=== PATIENT | female | born 1960 | race Caucasian/White ===

== ENCOUNTER 2017-09-10 18:36 | Observation (INO) | payer MEDICARE, MEDICAID ==
[~2017-09-10] VITALS: Ht 157.5 cm; Wt 54.0 kg
[~2017-09-10 18:36] MED LIST: ADULT LOW DOSE81 MG PO; ADVAIRDISKUS IH; AMBIEN 10 MG TA10 MG PO; ASPIRIN OR; CEPHALEXIN 500500 M3 PO; CIPRO500 MG PO; CIPROFLOXACIN500 M3 OR; CLEOCIN HCL300 MG PO; DARVOCET-N 1001 EAC1 OR; DETROL PO; DILANTIN100 MG PO; FLAGYL500 MG OR; GABAPENTIN PO; KEPPRA 500 MG500 M1 PO; LIDOCAINE VISC100 M1 SWISH&SPIT; LISINOPRIL5 MG; MAG-OX 400 TAB400 M1 OR; MEGESTROL40 MG/1 M1 PO; METHADONE HCL5 MG PO; NEBULIZER; NEURONTIN 300300 M1 PO; NORCO 5-325 TA1 EACH PO; NORVASC5 MG PO; POTASSIUM20 PO; PROAIR HFA8.5 GM INH; REMERON30 MG PO; SEROQUEL200 MG PO; SIMCOR 1,000-21 EACH PO; SPIRIVA PO; SYNTHROID25 MCG; XANAX 0.5 MG0.5 M1 PO; XANAX 0.5 MG0.5 MG PO; XANAX XR1 MG; ZANAFLEX4 MG PO
[2017-09-10 19:08] VITALS: BP 140/94
[2017-09-10] MEDS ORDERED: CLONAZEPAM 0.50.5 M1 PO (19:12)
[2017-09-10 20:05] LABS: ABSOLUTE BASOPHILS 0.1 thou/uL (0.0-0.2); ABSOLUTE EOSINOPHILS 0.1 thou/uL (0.0-0.7); ABSOLUTE LYMPHOCYTES 1.8 thou/uL (0.8-5.3); ABSOLUTE MONOCYTES 0.5 thou/uL (0.0-1.2); ABSOLUTE NEUTROPHILS 6.8 thou/uL (1.6-8.1); BASOPHILS 1.2 %; EOSINOPHILS 0.7 %; HEMATOCRIT 37.1 % (37.0-47.0); HEMOGLOBIN 12.3 gm/dL (12.0-15.0); LYMPHOCYTES 19.3 %; MCH 32.5 pg (26.0-34.0); MCHC 33.3 g/dL (28.0-37.0); MCV 97.7 fL (80.0-100.0); MONOCYTES 5.2 %; MPV 7.2 fl. (7.2-11.1); NUCLEATED RBCS 0 /100WBC; PLATELET COUNT* 174 thou/uL (150-400); POLYS 73.6 %; RDW-CV 13.7 % (10.5-14.5); WBC 9.2 thou/uL (4.0-11.0)
[2017-09-10 20:13] LABS: CALCIUM 8.3 mg/dL (8.5-10.1); CREATININE 0.7 mg/dL (0.6-1.3); POTASSIUM 4.4 mmol/L (3.5-5.1)
[2017-09-10 20:17] LABS: ALBUMIN 2.8 g/dL (3.4-5.0); TOTAL BILIRUBIN 0.2 mg/dL (<0.1-1.0); TOTAL PROTEIN 6.2 g/dL (6.4-8.2)
[2017-09-10 22:11] LABS: URINE BILIRUBIN NEGATIVE (Negative); URINE BLOOD TRACE (Negative); URINE CLARITY CLEAR; URINE COLOR YELLOW; URINE GLUCOSE-RANDOM NEGATIVE (Negative); URINE KETONES NEGATIVE (Negative); URINE LEUKOCYTES-REFLEX NEGATIVE (Negative); URINE NITRITE-REFLEX NEGATIVE (Negative); URINE PROTEIN NEGATIVE (Negative); URINE SPECIFIC GRAVITY 1.025 (1.005-1.030); URINE UROBILINOGEN 0.2 E.U./dl (0.2-1.0)
[2017-09-10 22:19] LABS: AMP/METHAMP Negative (Negative); BARBITURATES Negative (Negative); BENZODIAZEPINES POSITIVE (Negative); COCAINE Negative (Negative); METHADONE Negative (Negative); OPIATES POSITIVE (Negative); PCP Negative (Negative); THC POSITIVE (Negative)
[2017-09-10 23:55] VITALS: BP 141/102
[2017-09-11 00:05] VITALS: BP 141/84
[2017-09-11 08:00] VITALS: BP 102/66
[2017-09-11 11:30] VITALS: BP 109/71
[2017-09-11 16:00] VITALS: BP 149/96
[2017-09-11 20:00] VITALS: BP 151/110
[2017-09-12] VITALS: BP 122/75
[2017-09-12 04:00] VITALS: BP 125/77
[2017-09-12 08:12] VITALS: BP 148/97
[2017-09-12 10:15] VITALS: BP 148/97
== END 2017-09-12 11:19 | disposition home or self-care (01) ==
LOC: M.ERS 18:36 → M.2W 23:15 → M.TBA-ER 23:15 → M.2W 09-11 00:04
PROVIDERS: Personal Emergency Response Attendant; ADMIT Internal Medicine
DX: S41.112A Laceration without foreign body of left upper arm, initial encounter (principal); R27.0 Ataxia, unspecified; F31.9 Bipolar disorder, unspecified; T50.905A Adverse effect of unspecified drugs, medicaments and biological substances, initial encounter; F12.10 Cannabis abuse, uncomplicated; F10.10 Alcohol abuse, uncomplicated; G92 Toxic encephalopathy; G40.909 Epilepsy, unspecified, not intractable, without status epilepticus; E44.0 Moderate protein-calorie malnutrition; I47.1 Supraventricular tachycardia; I10 Essential (primary) hypertension; F17.210 Nicotine dependence, cigarettes, uncomplicated; J44.9 Chronic obstructive pulmonary disease, unspecified; W22.03XA Walked into furniture, initial encounter; Y92.89 Other specified places as the place of occurrence of the external cause; Y93.89 Activity, other specified; Y99.8 Other external cause status; Z86.73 Personal history of transient ischemic attack (TIA), and cerebral infarction without residual deficits; Z85.828 Personal history of other malignant neoplasm of skin; Z85.41 Personal history of malignant neoplasm of cervix uteri; Z72.89 Other problems related to lifestyle

== ENCOUNTER 2018-04-04 02:10 | Emergency (ER) | payer MEDICARE, OTHER, MEDICAID ==
[~2018-04-04] VITALS: Ht 157.5 cm; Wt 51.3 kg
[~2018-04-04 02:10] MED LIST changes: +CLONAZEPAM 0.50.5 M1 PO
[2018-04-04 02:39] LABS: BE -2.2 mmol/L (-2 to +3); PCO2 40.8 mmHg (35.0-45.0); pH 7.368 (7.340-7.450)
[2018-04-04 02:42] LABS: PO2 308.3 mmHg (75.0-100.0)
[2018-04-04 03:18] LABS: ABSOLUTE BASOPHILS 0.1 thou/uL (0.0-0.2); ABSOLUTE LYMPHOCYTES 1.7 thou/uL (0.8-5.3); ABSOLUTE MONOCYTES 0.5 thou/uL (0.0-1.2); BASOPHILS 0.7 %; EOSINOPHILS 0.3 %; HEMATOCRIT 44.4 % (37.0-47.0); HEMOGLOBIN 15.1 gm/dL (12.0-15.0); LYMPHOCYTES 12.5 %; MCH 32.8 pg (26.0-34.0); MCHC 33.9 g/dL (28.0-37.0); MCV 96.7 fL (80.0-100.0); MONOCYTES 4.1 %; MPV 6.8 fl. (7.2-11.1); NUCLEATED RBCS 0 /100WBC; PLATELET COUNT* 197 thou/uL (150-400); POLYS 82.4 %; RDW-CV 13.2 % (10.5-14.5); WBC 13.4 thou/uL (4.0-11.0)
[2018-04-04 03:22] LABS: ANION GAP 9 mmol/L (7-16); BUN 11 mg/dL (7-18); CALCIUM 8.6 mg/dL (8.5-10.1); CHLORIDE 106 mmol/L (98-107); CO2 28 mmol/L (21-32); CREATININE 0.8 mg/dL (0.6-1.3); GLUCOSE 109 mg/dL (70-99); POTASSIUM 3.5 mmol/L (3.5-5.1); SODIUM 143 mmol/L (136-145)
[2018-04-04 03:23] LABS: PROTIME 10.6 Seconds (9.20-11.50)
[2018-04-04 03:29] LABS: ALBUMIN 3.2 g/dL (3.4-5.0); ALKALINE PHOSPHATASE 110 U/L (46-116); SGOT 15 U/L (15-37); SGPT 18 U/L (30-65); TOTAL BILIRUBIN 0.2 mg/dL (<0.1-1.0); TOTAL PROTEIN 6.9 g/dL (6.4-8.2); TROPONIN-I LEVEL <0.06 ng/mL (<0.06)
[2018-04-04 04:20] VITALS: BP 105/63
--- NOTE | 2018-04-04 13:50 | EKG ---
[place] [address] ELECTROCARDIOGRAM REPORT Name: RAIZA PRESTON Room: [facility]#: [id number] Admission: 04/04/18 Attend Phys: Discharge: 04/04/18 Date of : 60 Report #: [id number] THIS REPORT FOR: //name// [facility] ED Test Date: 2018-04-04 Test Time: 02:25:30 Pat Name: RAIZA PRESTON Department: Room: Gender: F Serger: Osvaldo MIRELES : 1960 Requested By: Maribel Santos Order Number: [id number] MD: Shahid Rockwell Measurements Intervals [place] Rate: 160 P: VT: QRS: 65 QRSD: 146 T: 50 QT: 374 QTc: 611 Interpretive Statements artifact, NSR Right bundle branch block Probable left ventricular hypertrophy Borderline prolonged QT interval Artifact in lead(s) aVF,V1,V2,V3,V4,V5,V6 Compared to ECG 03/25/2015 17:21:09 Right bundle-branch block now present Sinus rhythm no longer present Right-axis deviation no longer present Electronically Signed On 04-04-2018 13:50:07 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
== END 2018-04-04 04:20 | disposition short-term general hospital (02) ==
LOC: M.ERS 02:10
PROVIDERS: Emergency Medicine
DX: T58.91XA Toxic effect of carbon monoxide from unspecified source, accidental (unintentional), initial encounter (principal); R41.0 Disorientation, unspecified; R51 Headache; R11.0 Nausea; J44.9 Chronic obstructive pulmonary disease, unspecified; F32.9 Major depressive disorder, single episode, unspecified; I10 Essential (primary) hypertension; Z85.828 Personal history of other malignant neoplasm of skin; Z90.49 Acquired absence of other specified parts of digestive tract; Z98.890 Other specified postprocedural states; Z86.73 Personal history of transient ischemic attack (TIA), and cerebral infarction without residual deficits; Z88.0 Allergy status to penicillin; Z88.5 Allergy status to narcotic agent; Z91.013 Allergy to seafood; Z88.8 Allergy status to other drugs, medicaments and biological substances

== ENCOUNTER 2020-03-25 11:54 | Emergency (ER) | payer MEDICARE, MEDICAID ==
[~2020-03-25] VITALS: Ht 154.9 cm; Wt 48.5 kg
[2020-03-25 14:26] VITALS: BP 122/68
== END 2020-03-25 14:27 | disposition home or self-care (01) ==
LOC: M.ERS 11:54
DX: S82.844A Nondisplaced bimalleolar fracture of right lower leg, initial encounter for closed fracture (principal); J44.9 Chronic obstructive pulmonary disease, unspecified; I10 Essential (primary) hypertension; F17.210 Nicotine dependence, cigarettes, uncomplicated; Z86.73 Personal history of transient ischemic attack (TIA), and cerebral infarction without residual deficits; Z98.890 Other specified postprocedural states; Z85.41 Personal history of malignant neoplasm of cervix uteri; Z85.828 Personal history of other malignant neoplasm of skin; Z86.14 Personal history of Methicillin resistant Staphylococcus aureus infection; Z91.041 Radiographic dye allergy status; Z88.0 Allergy status to penicillin; Z88.8 Allergy status to other drugs, medicaments and biological substances; Z91.013 Allergy to seafood; X50.1XXA Overexertion from prolonged static or awkward postures, initial encounter; Y93.89 Activity, other specified; Y92.89 Other specified places as the place of occurrence of the external cause; Y99.8 Other external cause status

== ENCOUNTER → 2020-04-13 | Day surgery (SDC) | payer MEDICARE, MEDICAID ==
[~2020-04-13] MED LIST changes: +ADVAIR 250-501 EACH INH; +ALBUTEROL2.5 MG/31 INH; +ASPIRIN325 PO; +HYDROCODON-ACE1 EAC7 PO; +TRAZODONE HCL50 MG PO
--- NOTE | ~2020-04-13 | OP ---
[facility] [place] [address] [place] [address] OPERATIVE REPORT Name: RAIZA PRESTON Room: [facility].#: [id number] Admission: 04/13/20 Attend Phys: Nicolette Chatman DO Discharge: Date of : 60 Report #: [id number] THIS REPORT FOR: cc: Richard Soni Ahmad W. DO ~ Nicolette Chatman DO DATE OF SERVICE: 04/13/2020 PREOPERATIVE DIAGNOSIS: Right bimalleolar ankle fracture with syndesmosis widening. POSTOPERATIVE DIAGNOSIS: Right bimalleolar ankle fracture with syndesmosis widening. PROCEDURE: 1. Open reduction and internal fixation, right lateral malleolus. 2. ORIF, right ankle syndesmosis. 3. Intraoperative physician-guided fluoroscopy less than 1 hour. SURGEON: Nicolette Chatman DO GRAIN BUYER: Dr. Jaiden Rodgers ANESTHESIA: General and nerve block by Anesthesia. ESTIMATED BLOOD LOSS: 10 mL. SPECIMENS: None. DRAINS: None. COMPLICATIONS: None. CONDITION: Stable. DISPOSITION: PACU to home. ANTIBIOTICS: 600 mg of clindamycin IV preoperatively. TOURNIQUET: Approximately 45 minutes at 250 mmHg. IMPLANTS: Arthrex fibular nail and syndesmosis TightRope. INDICATIONS FOR PROCEDURE: The patient is a 59-year-old female who sustained a bimalleolar ankle fracture approximately 3 weeks ago, she walked around on it [address] [address] OPERATIVE REPORT Name: RAIZA PRESTON Room: [facility] M..#: [id number] Admission: 04/13/20 Attend Phys: Nicolette Chatman DO Discharge: Date of : 60 Report #: [id number] for approximately 2 weeks prior to presenting to her primary care's office. X-rays at the primary care physician's office showed a displaced bimalleolar ankle fracture with syndesmosis widening. She was subsequently referred to our office. She unfortunately did not abide by her nonweightbearing restrictions and was not in a splint or any sort of assistive device. By the time she saw me in clinic her swelling was noted to be amenable to surgical fixation given the widening of her syndesmosis as well as the general displacement of the ankle fracture. I did recommend open reduction and internal fixation. The patient is a smoker and uses tobacco on a daily basis. She was counseled on the risks of using tobacco in regards to her both wound healing status as well as her wound healing and fracture healing statuses, but I did recommend surgical stabilization of the ankle with open reduction and internal fixation. The benefits, risks, complications, and alternatives of this procedure were discussed with the patient in detail. These include but are not limited to bleeding, surgical site infection, neurovascular compromise, wound healing complications, malunion, nonunion, hardware failure, continued pain, need for further surgery, DVT, PE as well as the inherent risks of anesthesia. The patient understands these risks and is agreeable to proceed. Consent was signed in the preoperative holding area and on the chart at time of surgery, operative site was marked. DESCRIPTION OF PROCEDURE: The patient was brought to the operating room and placed supine on the operating table. She was administered general anesthetic. A well-padded tourniquet was placed on the proximal portion of the right thigh. Right lower extremity was then sterilely prepped with ChloraPrep and allowed to dry for 3 minutes. She was then draped in usual fashion. A timeout was performed confirming correct patient, site and procedure. Surgical site markings were identified, and all in the room were in agreement. Procedure began with exsanguination of right lower extremity with an Esmarch and inflation of tourniquet to 250 mmHg. Next, a standard lateral incision was used starting at the fracture line and extending distally to the level of the peroneal tendons. This was carried through skin and subcutaneous tissues. Subperiosteal dissection was carried out. The fracture was identified. Fracture hematoma was cleared. The fracture was then reduced with manual reduction technique and held in place with a bone clamp. Next, the K wire from the fibular nail system was used, starting point was identified on C-arm fluoroscopy. The K-wire was then passed and the length of the fibula. An opening reamer was then used to the appropriate depth followed by the 3.5 mm proximal reamer. The nail was then inserted into the fibula. The nail was held into place with 2 K-wires. We then deployed the talons proximally, the lateral to medial screws were then drilled with the appropriate drill bit, measured and a 2.7 mm nonlocking screw was placed distally. We then stressed the ankle with an external rotation stress view. There was noted to be continued widening of the syndesmosis. Therefore, a decision was made to place a TightRope. This was drilled with a K-wire through the insertion guide. The insertion jig was then removed. This was then [address] [address] OPERATIVE REPORT Name: RAIZA PRESTON Room: [facility]#: [id number] Admission: 04/13/20 Attend Phys: Nicolette Chatman DO Discharge: Date of : 60 Report #: [id number] overdrilled with a cannulated drill bit and syndesmosis TightRope was placed across all 4 cortices according to the technique guide, tightened down appropriately. Excess sutures were removed. The medial malleolus was noted to be anatomically reduced at this point, given her bone quality, the decision was made to not fixate this with a concern for a destabilizing her medial malleolar fracture. At this point, final x-rays were taken, which confirmed appropriate fracture reduction, hardware placement and islam of a congruent ankle mortise. The wound was then irrigated with normal saline. Subcutaneous tissue closed with 2-0 Vicryl suture. Skin reapproximated with 3-0 nylon. The wound was then dressed with Xeroform, 4 x 4s, ABD, soft roll, well-padded posterior plaster splint was applied. Tourniquet was let down at approximately 45 minutes. The patient tolerated the procedure well without complications, transferred to PACU in stable condition. All needle and sponge counts were correct x 2 and I was present throughout all pertinent decision making aspects of the case. By: [id number] [id number] Chatman DO /nt
== END | disposition home or self-care (01) ==
LOC: M.SUR 08:33
PROVIDERS: ATTEND Orthopaedic Surgery
DX: S82.841A Displaced bimalleolar fracture of right lower leg, initial encounter for closed fracture (principal); S93.431A Sprain of tibiofibular ligament of right ankle, initial encounter; M25.571 Pain in right ankle and joints of right foot; Z20.822 Contact with and (suspected) exposure to COVID-19; X58.XXXA Exposure to other specified factors, initial encounter; Y93.89 Activity, other specified; Y92.89 Other specified places as the place of occurrence of the external cause; Y99.8 Other external cause status

== ENCOUNTER → 2020-06-11 | Outpatient (CLI) | payer MEDICARE, MEDICAID | LOC: M.RAD 10:28 | PROVIDERS: ATTEND Family Medicine | DX: M25.571 Pain in right ankle and joints of right foot (principal) ==

== ENCOUNTER 2020-08-13 10:31 | Emergency (ER) | payer MEDICARE, MEDICAID ==
[~2020-08-13] VITALS: Ht 154.9 cm; Wt 50.5 kg
[2020-08-13] MEDS ORDERED: CELEBREX 200 M200 M1 PO (11:07)
[2020-08-13 11:50] LABS: CALCIUM 8.7 mg/dL (8.5-10.1); CREATININE 0.6 mg/dL (0.6-1.3); POTASSIUM 4.2 mmol/L (3.5-5.1)
[2020-08-13 12:01] LABS: ALBUMIN 3.2 g/dL (3.4-5.0); TOTAL BILIRUBIN 0.2 mg/dL (<0.1-1.0); TOTAL PROTEIN 6.6 g/dL (6.4-8.2)
[2020-08-13 12:26] LABS: ABSOLUTE BASOPHILS 0.1 thou/uL (0.0-0.2); ABSOLUTE EOSINOPHILS 0.1 thou/uL (0.0-0.7); ABSOLUTE LYMPHOCYTES 2.3 thou/uL (0.8-5.3); ABSOLUTE MONOCYTES 0.5 thou/uL (0.0-1.2); ABSOLUTE NEUTROPHILS 3.8 thou/uL (1.6-8.1); BASOPHILS 0.9 %; EOSINOPHILS 1.4 %; HEMATOCRIT 38.4 % (37.0-47.0); HEMOGLOBIN 13.1 gm/dL (12.0-15.0); LYMPHOCYTES 34.3 %; MCH 34.1 pg (26.0-34.0); MCV 100.4 fL (80.0-100.0); MONOCYTES 7.5 %; MPV 6.8 fl. (7.2-11.1); NUCLEATED RBCS 0 /100WBC; PLATELET COUNT* 229 thou/uL (150-400); POLYS 55.9 %; RBC 3.83 mil/uL (4.20-5.00); RDW-CV 16.1 % (10.5-14.5); WBC 6.8 thou/uL (4.0-11.0)
[2020-08-13] MEDS ORDERED: COMPRESSION TH1 EACH MISCELL (12:36)
[2020-08-13 12:38] LABS: APTT 25.8 Seconds (25.0-31.3); PROTIME 10.3 Seconds (9.20-11.50)
[2020-08-13 14:19] VITALS: BP 137/86
--- NOTE | 2020-08-13 17:44 | EKG ---
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: : 1960 Requested By: Mame Bergman Order Number: [id number] MD: Gianluca Dawson Measurements Intervals [place] Rate: 96 P: 74 DC: 122 QRS: 89 QRSD: 92 T: 57 QT: 356 QTc: 450 Interpretive Statements Sinus rhythm Possible left atrial enlargement Borderline T abnormalities, lateral leads Borderline ST elevation, anterior leads Baseline wander in lead(s) V5 Compared to ECG 04/04/2018 02:25:30 T-wave abnormality now present ST (T wave) deviation now present Right bundle-branch block no longer present Electronically Signed On 08-13-2020 17:44:13 CDT by Gianluca Dawson [email or web address] <ELECTRONICALLY SIGNED> By: Gianluca Dawson MD, [facility] 08/13/20 1744 1110 1110 Gianluca Dawson MD, [facility] /EPI
== END 2020-08-13 14:20 | disposition home or self-care (01) ==
LOC: M.ERS 10:31
PROVIDERS: Nurse Practitioner Family
DX: R60.0 Localized edema (principal); Z20.822 Contact with and (suspected) exposure to COVID-19; R06.00 Dyspnea, unspecified; J44.9 Chronic obstructive pulmonary disease, unspecified; I11.0 Hypertensive heart disease with heart failure; I50.9 Heart failure, unspecified; Z86.14 Personal history of Methicillin resistant Staphylococcus aureus infection; Z87.2 Personal history of diseases of the skin and subcutaneous tissue; Z85.41 Personal history of malignant neoplasm of cervix uteri; Z98.890 Other specified postprocedural states; Z86.73 Personal history of transient ischemic attack (TIA), and cerebral infarction without residual deficits